=== PATIENT | female | born 1955 | race Caucasian/White ===

== ENCOUNTER 2022-12-03 04:12 | Inpatient (IN) | payer BC, OTHER ==
[~2022-12-03] VITALS: Ht 165.1 cm; Wt 70.0 kg
[2022-12-03] MEDS ORDERED: methylPREDNISolone SOD SUCC 125 MG/2 ML VL IV ONE (04:30)
[2022-12-03] MEDS ORDERED: LEVALBUTEROL HCL 1.25 MG/3 ML NEB ONE (04:41)
[2022-12-03] MEDS ORDERED: IPRATROPIUM BROM 0.5 MG/2.5ML INH SOL NEB ONE (04:45)
[2022-12-03] MEDS ORDERED: LABETALOL HCL 5 MG/ML 4ML SYRINGE IV ONE ×2 (05:15→07:15)
[2022-12-03] MEDS ORDERED: LEVALBUTEROL HCL 1.25 MG/3 ML NEB NEB SCH (06:00)
[2022-12-03] MEDS ORDERED: ONDANSETRON HCL 4 MG/2 ML VIAL IV ONE (06:00)
[2022-12-03 06:33] LABS: Basophils # (auto) 0.1 10 ^3/uL (0-0.2); Basophils % (auto) 0.5 % (0.0-2.0); Eosinophils # (auto) 0.1 10 ^3/uL (0-0.8); Eosinophils % (auto) 0.6 % (0.0-7.0); Hematocrit 39.8 % (36.0-46.0); Hemoglobin 12.9 g/dL (12.2-16.2); Lymphocytes # (auto) 1.7 10 ^3/uL (0.4-5.4); Mean Corpuscular Hemoglobin 30.1 pg (28.0-32.0); Mean Corpuscular Hgb Conc. 32.5 g/dL (32.0-36.0); Mean Corpuscular Volume 92.6 fL (80.0-100.0); Monocytes # (auto) 1.9 10 ^3/uL (0-1.3); Neutrophils # (auto) 13.4 10 ^3/uL (1.6-8.6); Neutrophils % (auto) 77.9 % (37.0-80.0); Nucleated Red Blood Cells % 0.1 %; Red Blood Cells 4.29 10^6/uL (4.0-5.20); Red Cell Distribution Width 13.7 % (11.8-14.3); White Blood Cell 17.2 10^3/uL (4.4-10.8)
[2022-12-03 06:59] LABS: Albumin 3.7 g/dL (3.4-5.0); Calcium 8.9 mg/dL (8.5-10.1); Potassium 3.7 mmol/L (3.5-5.1)
[2022-12-03 07:02] LABS: BUN/Creatinine Ratio 19.6
[2022-12-03 07:04] LABS: Bilirubin, Total 0.5 mg/dL (0.2-1.0); Total Protein 7.2 g/dL (6.4-8.2)
[2022-12-03] MEDS ORDERED: LORazepam 2MG/ML-1ML VIAL IV ONE ×2 (07:15→11:45)
[2022-12-03 08:30] LABS: Urine Bacteria NONE SEEN /hpf (None Seen); Urine Blood TRACE /uL (Negative); Urine Hyaline Cast FEW /lpf (0 - 2); Urine Mucus FEW (None Seen); Urine WBC 4 /hpf (0 - 5)
[2022-12-03] MEDS ORDERED: FUROSEMIDE 20 MG/2 ML VIAL IV ONE (11:45)
[2022-12-03] MEDS ORDERED: NITROGLYCERIN 0.4 MG SL TAB SL PRN (11:45)
[2022-12-03] MEDS ORDERED: MORPHINE SULFATE INJ 2 MG/ml SYRG IV PRN (11:45)
[2022-12-03] MEDS ORDERED: hydrALAZINE HCL 20 MG/ML VL IV ONE (11:45)
[2022-12-03] MEDS: LEVALBUTEROL HCL 1.25 MG/3 ML NEB NEB SCH ×2 (12:00→19:11)
[2022-12-03 13:11] LABS: INR 1.03 (0.9-1.15)
[2022-12-03] MEDS: methylPREDNISolone SOD SUCC 125 MG/2 ML VL IV SCH ×2 (13:15→18:53)
[2022-12-03] MEDS ORDERED: IOHEXOL 350 MG/ML 100ML IJ ONE (13:41)
[2022-12-03] MEDS: ONDANSETRON HCL 4 MG/2 ML VIAL IV PRN (14:07)
[2022-12-03] MEDS: LORazepam 2MG/ML-1ML VIAL IV PRN ×2 (14:07→20:37)
[2022-12-03] MEDS: ACETAMINOPHEN 325 MG TAB PO PRN ×2 (14:08→20:37)
[2022-12-03] MEDS: IPRATROPIUM BROM 0.5 MG/2.5ML INH SOL NEB PRN (19:11)
[2022-12-03] MEDS ORDERED: METOPROLOL TARTRATE 1MG/1ML-5ML VIAL IV ONE (19:15)
[2022-12-03] MEDS: cloNIDine HCL 0.1 MG TAB PO SCH (22:37)
[2022-12-03] MEDS: METOPROLOL TARTRATE 25 MG TAB PO SCH (22:37)
[2022-12-04] MEDS: methylPREDNISolone SOD SUCC 125 MG/2 ML VL IV SCH ×5 (00:31→23:52)
[2022-12-04] MEDS: LEVALBUTEROL HCL 1.25 MG/3 ML NEB NEB SCH ×4 (00:56→19:00)
[2022-12-04] MEDS: IPRATROPIUM BROM 0.5 MG/2.5ML INH SOL NEB PRN ×4 (00:56→19:00)
[2022-12-04] MEDS: ACETAMINOPHEN 325 MG TAB PO PRN (05:40)
[2022-12-04] MEDS: LORazepam 2MG/ML-1ML VIAL IV PRN ×3 (05:40→18:15)
[2022-12-04] MEDS: cloNIDine HCL 0.1 MG TAB PO SCH ×3 (05:40→22:15)
[2022-12-04 06:14] LABS: Basophils # (auto) 0 10 ^3/uL (0-0.2); Basophils % (auto) 0.2 % (0.0-2.0); Eosinophils # (auto) 0 10 ^3/uL (0-0.8); Hematocrit 39.6 % (36.0-46.0); Hemoglobin 12.9 g/dL (12.2-16.2); Lymphocytes # (auto) 0.7 10 ^3/uL (0.4-5.4); Lymphocytes % (auto) 3.7 % (10.0-50.0); Mean Corpuscular Hemoglobin 30.4 pg (28.0-32.0); Mean Corpuscular Hgb Conc. 32.7 g/dL (32.0-36.0); Monocytes # (auto) 1.1 10 ^3/uL (0-1.3); Monocytes % (auto) 5.8 % (0.0-12.0); Neutrophils # (auto) 17.5 10 ^3/uL (1.6-8.6); Neutrophils % (auto) 90.3 % (37.0-80.0); Red Blood Cells 4.26 10^6/uL (4.0-5.20); Red Cell Distribution Width 13.6 % (11.8-14.3); White Blood Cell 19.4 10^3/uL (4.4-10.8)
[2022-12-04 06:49] LABS: Calcium 10.1 mg/dL (8.5-10.1); Potassium 3.6 mmol/L (3.5-5.1)
[2022-12-04 06:53] LABS: BUN/Creatinine Ratio 40.4
[2022-12-04] MEDS ORDERED: cefTRIAXone 1GM/50ML D5W 50 ML IV SCH (09:00)
[2022-12-04] MEDS ORDERED: SODIUM CHLORIDE 0.9% 500 ML IV ONE (09:30)
[2022-12-04] MEDS: SODIUM CHLORIDE 0.9% 1,000 ML IV SCH ×2 (09:42→21:07)
[2022-12-04] MEDS ORDERED: AZITHROMYCIN 500MG/ 250ML 250 ML IV SCH (10:00)
[2022-12-04] MEDS ORDERED: VANCOMYCIN PER PHARMACY 0 MG IV SCH (10:45)
[2022-12-04] MEDS: PANTOPRAZOLE 40 MG/10 ML VIAL INJ IV SCH (10:55)
[2022-12-04] MEDS: METOPROLOL TARTRATE 25 MG TAB PO SCH ×3 (10:55→22:14)
[2022-12-04] MEDS: ENOXAPARIN SOD 40 MG/0.4 ML SYRINGE SC SCH (10:55)
[2022-12-04] MEDS: ONDANSETRON HCL 4 MG/2 ML VIAL IV PRN ×3 (10:56→20:10)
[2022-12-04 11:45] VITALS: BP 171/96
[2022-12-04] MEDS: VANCOMYCIN 1GM/250ML 250 ML IV SCH (12:11)
[2022-12-04] MEDS: CEFEPIME 1GM/ 50ML 50 ML IV SCH (15:10)
[2022-12-04] MEDS: MORPHINE SULFATE INJ 2 MG/ml SYRG IV PRN ×4 (16:05→22:43)
[2022-12-05] MEDS: LORazepam 2MG/ML-1ML VIAL IV PRN ×4 (00:36→12:40)
[2022-12-05] MEDS: LEVALBUTEROL HCL 1.25 MG/3 ML NEB NEB SCH ×3 (00:48→12:00)
[2022-12-05] MEDS: IPRATROPIUM BROM 0.5 MG/2.5ML INH SOL NEB PRN (00:48)
[2022-12-05] MEDS: MORPHINE SULFATE INJ 2 MG/ml SYRG IV PRN ×6 (01:46→15:13)
[2022-12-05] MEDS: CEFEPIME 1GM/ 50ML 50 ML IV SCH (02:01)
[2022-12-05] MEDS: ONDANSETRON HCL 4 MG/2 ML VIAL IV PRN ×2 (03:20→09:40)
[2022-12-05] MEDS: VANCOMYCIN 1GM/250ML 250 ML IV SCH (04:18)
[2022-12-05] MEDS: methylPREDNISolone SOD SUCC 125 MG/2 ML VL IV SCH ×2 (05:58→12:46)
[2022-12-05] MEDS: cloNIDine HCL 0.1 MG TAB PO SCH (06:00)
[2022-12-05] MEDS ORDERED: ALBUTEROL MEDNEB 2.5 mg/3ml NEB ONE (06:11)
[2022-12-05 06:21] LABS: Basophils # (auto) 0.2 10 ^3/uL (0-0.2); Basophils % (auto) 0.8 % (0.0-2.0); Eosinophils # (auto) 0 10 ^3/uL (0-0.8); Hematocrit 37.9 % (36.0-46.0); Hemoglobin 12.1 g/dL (12.2-16.2); Lymphocytes # (auto) 0.2 10 ^3/uL (0.4-5.4); Mean Corpuscular Hemoglobin 30.2 pg (28.0-32.0); Mean Corpuscular Volume 94.3 fL (80.0-100.0); Monocytes # (auto) 1.8 10 ^3/uL (0-1.3); Monocytes % (auto) 7.7 % (0.0-12.0); Neutrophils # (auto) 21.3 10 ^3/uL (1.6-8.6); Neutrophils % (auto) 90.5 % (37.0-80.0); Nucleated Red Blood Cells % 0.1 %; Red Blood Cells 4.02 10^6/uL (4.0-5.20); Red Cell Distribution Width 14.2 % (11.8-14.3); White Blood Cell 23.5 10^3/uL (4.4-10.8)
[2022-12-05 06:48] LABS: Potassium 3.7 mmol/L (3.5-5.1)
[2022-12-05] MEDS: SODIUM CHLORIDE 0.9% 1,000 ML IV SCH (06:53)
[2022-12-05 07:03] LABS: Albumin 3.1 g/dL (3.4-5.0); BUN/Creatinine Ratio 41.5; Calcium 8.8 mg/dL (8.5-10.1)
[2022-12-05 07:12] LABS: Bilirubin, Total 0.3 mg/dL (0.2-1.0); Total Protein 6.5 g/dL (6.4-8.2)
[2022-12-05] MEDS: ENOXAPARIN SOD 40 MG/0.4 ML SYRINGE SC SCH (10:42)
[2022-12-05] MEDS: PANTOPRAZOLE 40 MG/10 ML VIAL INJ IV SCH (10:42)
[2022-12-05] MEDS: METOPROLOL TARTRATE 25 MG TAB PO SCH (10:42)
[2022-12-05 15:13] VITALS: BP 142/78
[2022-12-05] MEDS ORDERED: LORazepam 2MG/ML-1ML VIAL IV PRN (15:15)
== END 2022-12-05 23:36 | DRG 871 ==
LOC: ER 04:12 → EDBD 04:12 → TELE 11:40 → TELE-CENTR 12-05 14:07 → CENTRAL 12-05 14:09
PROVIDERS: ADMIT Nurse Practitioner Family; ATTEND Nurse Practitioner Family
PROC: 5A0935A Assistance with Respiratory Ventilation, Less than 24 Consecutive Hours, High Flow/Velocity Cannula (ICD-10-PCS; principal; 2022-12-04)
DX: A41.9 Sepsis, unspecified organism (principal); J15.9 Unspecified bacterial pneumonia; J96.22 Acute and chronic respiratory failure with hypercapnia; J96.21 Acute and chronic respiratory failure with hypoxia; J81.1 Chronic pulmonary edema; I10 Essential (primary) hypertension; Z51.5 Encounter for palliative care; Z66 Do not resuscitate; M41.9 Scoliosis, unspecified; Z20.822 Contact with and (suspected) exposure to COVID-19; J84.10 Pulmonary fibrosis, unspecified
CPT/HCPCS: 36415; 36600; 71045; 71275; 80048; 80053; 81001; 82805; 83735; 83880; 84484; 85025; 85379; 85610; 87040; 87426; 87804; 93005; 93306; 94640; 96365; 96367; 96375; 96376; C9113; G0378; J0696; J2405; J3490